=== PATIENT | male | born 1995 | race Two or more races ===

== ENCOUNTER 2020-05-20 09:59 | Emergency (ER) | payer OTHER ==
[~2020-05-20] VITALS: Ht 175.3 cm; Wt 68.4 kg
[2020-05-20 11:16] LABS: BASO % 0.4 % (0.0-1.0); EOS # 0.1 10^3/uL (0.0-0.5); EOS % 1.8 % (0.0-3.0); HEMATOCRIT 45.2 % (42.0-52.0); HEMOGLOBIN 15.1 g/dl (13.5-17.5); LYMPH # 2.3 10^3/uL (1.5-5.0); LYMPH % 40.6 % (24.0-44.0); MEAN CORPUSCULAR HEMOGLOBIN 28.3 pg (27.0-33.0); MEAN CORPUSCULAR HGB CONC 33.4 g/dl (32.0-36.5); MEAN CORPUSCULAR VOLUME 84.8 fl (80.0-96.0); MONO # 0.5 10^3/uL (0.0-0.8); MONO % 8.3 % (0.0-5.0); NEUTROPHILS # 2.7 10^3/uL (1.5-8.5); NEUTROPHILS % 48.7 % (36.0-66.0); PLATELET COUNT, AUTOMATED 233 10^3/uL (150-450); RED BLOOD COUNT 5.33 10^6/uL (4.30-6.10); WHITE BLOOD COUNT 5.6 10^3/uL (4.0-10.0)
[2020-05-20 11:45] LABS: BLOOD UREA NITROGEN 15 MG/DL (7-18); CALCIUM LEVEL 9.4 MG/DL (8.5-10.1); CARBON DIOXIDE LEVEL 34 MEQ/L (21-32); CHLORIDE LEVEL 104 MEQ/L (98-107); CREATININE FOR GFR 1.09 MG/DL (0.70-1.30); GLOMERULAR FILTRATION RATE > 60.0 (>60); GLUCOSE, FASTING 94 MG/DL (70-100); POTASSIUM SERUM 4.5 MEQ/L (3.5-5.1); SODIUM LEVEL 140 MEQ/L (136-145)
--- NOTE | 2020-05-20 16:46 | REPVR ---
PROCEDURE INFORMATION: Exam: MR Lumbar Spine Without Contrast. Exam date and time: 05/20/2020 4:02 PM Age: 24 years old Clinical indication: Lumbago; Low back pain; Patient HX: Lbp, numb left leg, inabil to get erection TECHNIQUE: Imaging protocol: Multiplanar magnetic resonance images of the lumbar spine without intravenous contrast. COMPARISON: No relevant prior studies available. FINDINGS: Vertebrae: Unremarkable. Spinal cord: Normal signal. No cord compression. L1-L2: No significant disc disease. No significant spinal canal stenosis. No neural foraminal stenosis. L2-L3: No significant disc disease. No significant spinal canal stenosis. No neural foraminal stenosis. L3-L4: No significant disc disease. No significant spinal canal stenosis. No neural foraminal stenosis. L4-L5: Mild disc bulge. No significant spinal canal stenosis. Mild left neural foraminal narrowing. L5-S1: Mild disc bulge. There is superimposed central disc protrusion. No spinal canal stenosis. No neural foraminal narrowing. Other bones/joints: Diffusely decreased T1 bone marrow signal. Correlation with marrow infiltrative process. Soft tissues: Unremarkable. IMPRESSION: Mild disc bulge at L4-L5 with mild left neural foraminal narrowing. Diffuse decreased T1 vertebral bone marrow signal. Correlation with marrow infiltrative process. Electronically signed by: Tomás Mahan On 05/20/2020 16:46:16 PM
[2020-05-20 16:54] VITALS: BP 108/54
[2020-05-20] MEDS ORDERED: MEDR4PAK PO (17:16)
--- NOTE | 2020-05-20 20:18 | ED PDOC ---
Post-Departure Follow-Up ft liane lawrence faxed formal report of mri ls spine. needs hematology fu. pt aware Ciara Altamirano MD May 20, 2020 20:18
== END 2020-05-20 18:12 | disposition home or self-care (01) ==
LOC: M ED 09:59
DX: M51.26 Other intervertebral disc displacement, lumbar region (principal); R93.7 Abnormal findings on diagnostic imaging of other parts of musculoskeletal system

== ENCOUNTER 2020-11-10 13:29 | Emergency (ER) | payer OTHER ==
[~2020-11-10] VITALS: Ht 175.3 cm; Wt 71.1 kg
[~2020-11-10 13:29] MED LIST: MEDR4PAK PO
[2020-11-10 15:48] LABS: CHLAMYDIA DNA AMPLIFICATION NEGATIVE (NEGATIVE); GC DNA AMPLIFICATION NEGATIVE (NEGATIVE)
[2020-11-10 16:23] VITALS: BP 138/75
== END 2020-11-10 16:35 | disposition home or self-care (01) ==
LOC: M ED 13:29
DX: Z11.3 Encounter for screening for infections with a predominantly sexual mode of transmission (principal)

== ENCOUNTER → 2021-03-05 | Outpatient (CLI) | payer OTHER ==
[2021-03-05 17:27] LABS: FOLATE 13.6 NG/ML (>5.4); FOLLICLE STIMULATING HORMONE 1.4 mIU/mL (1.4-18.1); FREE T4 1.04 NG/DL (0.76-1.46); LUTEINIZING HORMONE 4.1 mIU/mL (1.5-9.3); PROLACTIN 9.1 NG/ML (2.1-17.7); PTH INTACT 42.2 PG/ML (18.5-88.0); RHEUMATOID FACTOR QUANT < 10.0 IU/ML (<15.0); TOTAL PROTEIN 7.4 GM/DL (6.4-8.2); VITAMIN B12 LEVEL 747 PG/ML (247-911)
[2021-03-07 10:41] LABS: ALBUMIN % 63.9 % (55.8-66.1); ALPHA-1-GLOBULIN % 2.9 % (2.9-4.9); ALPHA-2-GLOBULINS % 9.4 % (7.1-11.8); BETA-1-GLOBULINS % 4.8 % (4.7-7.2); BETA-2-GLOBULINS % 4.1 % (3.2-6.5)
[2021-03-07 10:42] LABS: ALBUMIN 4.73 GM/DL (3.29-5.55); ALPHA-1-GLOBULINS 0.21 GM/DL (0.17-0.41); BETA-1-GLOBULINS 0.36 GM/DL (0.28-0.60); GAMMA GLOBULIN % 14.9 % (11.1-18.8)
[2021-03-07 11:12] LABS: ANTINUCLEAR ANTIBODIES DIRECT Negative (Negative)
== END ==
LOC: M LAB 15:18
PROVIDERS: ATTEND Psychiatry & Neurology Neurology
DX: M54.5 Low back pain (principal); N52.9 Male erectile dysfunction, unspecified; M47.817 Spondylosis without myelopathy or radiculopathy, lumbosacral region